=== PATIENT | female | born 1985 | race Caucasian/White ===

== ENCOUNTER 2020-11-25 16:56 | Inpatient (IN) ==
[2020-11-25] MEDS ORDERED: ONDANSETRON INJ 2 MG/ML 2 ML VIAL IV STA (17:13)
[2020-11-25] MEDS ORDERED: SODIUM CHLORIDE 0.9% 1000ML 1,000 ML IV SCH (17:15)
--- NOTE | 2020-11-25 17:15 | Emergency Department Note ---
Impression & Plan Colon cancer metastasized to multiple sites, Abdominal ascites, Acute hyponatremia, Hypokalemia, Weakness ED Provider Note NAME: MEGHNA REED AGE: 35 SEX: F : 1985 ARRIVES VIA: Ambulance INFORMANT: Patient, the patient's significant other ED PROVIDER(S): Earnest Woodruff DO CHIEF COMPLAINT: Abdominal pain HPI: The patient is a 35-year-old female who presented to the emergency department for evaluation of abdominal pain. The patient has a history of recently diagnosed colon cancer which metastasized to her liver. She has a history of this as of approximately 1 year ago. She received chemotherapy 2 weeks ago. She has a colostomy. She has a significant amount of her bowel removed because of this diagnosis. Her significant other brought her to the emergency department today because of symptoms that been worsening over the course the last week. She is had decreased p.o. intake. She has been noted to have abdominal distention. She has had no vomiting but does complain of nausea and chest pain. She also has been having extreme weakness. Her significant other states that her symptoms are very severe at this time and is concerned that she has very severe abdominal distention compared to baseline. The patient has been taken all of her pain medication and is also concerned this may be making her very constipated. She has no rectal bleeding. She has had no falls. She describes no headaches at this time but has had recent headaches over the last 2 weeks. ROS: See above HPI for pertinent positives & negatives. A total of 10 systems reviewed and were otherwise negative. PAST MEDICAL HISTORY: See Below PAST SURGICAL HISTORY: See Below FAMILY HISTORY: See Below SOCIAL HISTORY: See Below HOME MEDICATIONS: See Below ALLERGIES: See Below VITALS: See Below PHYSICAL EXAMINATION: GENERAL: The patient is awake and alert. She appears to be somewhat anxious appearing. EYES: The conjunctivae are clear. The pupils are round and reactive. EARS, NOSE, MOUTH AND THROAT: The nose is without any evidence of any deformity. Mucous membranes are dry. NECK: The neck is nontender and supple. RESPIRATORY: Normal respiratory effort is noted there is no evidence of wheezing rhonchi or rales CARDIOVASCULAR: Tachycardic rate with regular rhythm was noted. There was no definite murmur. GASTROINTESTINAL: The abdomen is moderately distended and diffusely tender. There is no guarding or rigidity. There is output noted in the ostomy bag. MUSCULOSKELETAL/EXTREMITIES: There is no evidence of gross deformity full range of motion is noted in the hips and shoulders. SKIN: Skin is warm and dry. There is pedal edema bilaterally. NEUROLOGIC: Patient is awake alert and oriented x3. MEDICAL DECISION MAKING: The patient is a 35-year-old female who presented to the emergency department for generalized weakness. The patient has a history of metastatic colon cancer. She was treated in [place] 1 year ago where she had a colostomy. She has been receiving chemotherapy from [place] as well. Her last dose was 2 weeks ago. She has been taking oral chemotherapy that the family thinks was called [facility] but they are unsure. The patient's condition has been worsening especially over the course the last few weeks. She has been noted to have significant weakness. The patient was treated with IV fluids in the emergency department. Her con dition slowly improved while she was in the emergency department. I discussed the patient's laboratory and radiographic studies with her and her family members. Initially they requested to be transferred to [facility]. I discussed this case with the medicine team at [facility]. They do not feel that the patient would benefit from a transfer at this time as any intervention they could offer we could likely offer here initially until a formal plan and staging has been done. I agree with that assessment. When I discussed this with the patient and her family they stated that they would prefer to be transferred directly to [place] and do not want to stay at our facility. I will call the medicine team back at [facility] and arrange transportation on RN. I did discuss the case once again with Dr. Vega. The patient at this time is likely going to choose to be left to go AGAINST MEDICAL ADVICE with going by private vehicle to [facility]. 2310: I was notified by the nursing staff that the patient now would prefer to stay at our facility. They do not want to sign out AGAINST MEDICAL ADVICE. I do agree with this plan. I will notify the on-call [facility] hospitalist about the patient and hopefully the patient can be managed in our facility and have her condition maximized prior to discharge if this is still the plan. Triage Nursing notes reviewed. Prior medical records reviewed Vital Signs: reviewed and remarkable for tachycardia Differential diagnosis: Cardiac ischemia, aortic dissection, pulmonary embolism, pneumothorax, pneumonia, pericarditis, myocarditis, esophageal rupture, GERD, cholecystitis, pancreatitis, musculoskeletal, as well as other pathologies. ER treatment provided: See below Diagnostics interpreted by me: ECG: EKG was obtained in the emergency department. My interpretation is sinus tachycardia [address] depressions were noted. There was no PVCs. No previous tracing was available. Cardiac Monitoring: An order was placed for continuous cardiac monitoring. The monitor shows a rate of 115 bpm with sinus tachycardia rhythm. Laboratory studies: As stated above and show below. Imaging studies: See below Consultation(s): 5: I discussed this case with Dr. Vega who is on-call for internal medicine at [facility]. 2229: I discussed this case again with Dr. Vega. She is not comfortable excepting the patient transfer given the current bed situation as well as the patient's current medical needs. Do not worry about it 2355: The [facility] hospitalist, Dr. Barger was notified about the patient. Past Med/Surg History Medical History Metastatic colon cancer in female Surgical History H/O: hysterectomy History of colon resection Social History Smoking Status: Never smoker Preferred Language: [place] Feels Safe at Home: Yes Allergies Allergies Allergy/AdvReac Type Severity Reaction Status Date / Time Sulfa (Sulfonamide Allergy Unknown Rash Unverified 11/25/20 18:51 Antibiotics) Home Meds Home Medications Medication Instructions Recorded Confirmed Iv Vitamins 0 g IV DAILY 11/25/20 11/25/20 pantoprazole 20 mg PO DAILY 11/25/20 11/25/20 Results & Data (ED) Vital Signs Vital Signs - 24 hr 11/25/20 17:08 11/25/20 17:13 11/25/20 18:30 Temperature 37 C Temperature Source Oral Pulse Rate 123 H 128 H Pulse Rate from SpO2 Sensor 124 H Respiratory Rate 22 20 Blood Pressure 116/86 116/86 Blood Pressure Mean 96 96 Pulse Oximetry 92 93 99 Oxygen Delivery Method Room Air Nasal Cannula Oxygen Flow Rate 5 Sepsis Recent Fever Within 48 Hours No Sepsis New/Unexplained Change in Mental Status N/A Sepsis Action Taken by Nursing No Action Required 11/25/20 18:31 11/25/20 19:00 11/25/20 19:01 Temperature Temperature Source Pulse Rate 114 H 105 H 111 H Pulse Rate from SpO2 Sensor 114 H 106 H 111 H Respiratory Rate 20 20 20 Blood Pressure 120/83 120/84 Blood Pressure Mean 95 96 Pulse Oximetry 99 100 100 Oxygen Delivery Method Oxygen Flow Rate 5 Sepsis Recent Fever Within 48 Hours Sepsis New/Unexplained Change in Mental Status Sepsis Action Taken by Nursing 11/25/20 19:30 11/25/20 20:00 11/25/20 20:02 Temperature Temperature Source Pulse Rate 105 H 108 H 106 H Pulse Rate from SpO2 Sensor 105 H 107 H 106 H Respiratory Rate 19 22 23 Blood Pressure 120/81 115/99 Blood Pressure Mean 94 104 Pulse Oximetry 100 100 100 Oxygen Delivery Method Oxygen Flow Rate Sepsis Recent Fever Within 48 Hours Sepsis New/Unexplained Change in Mental Status Sepsis Action Taken by [facility] Medications Current Medication List: was personally reviewed by me Laboratory Data Attestation: I reviewed the patient's lab results. Result diagrams: 11/25/20 18:10 11/25/20 19:02 Lab Results 11/25/20 11/25/20 11/25/20 Range/Units 18:10 18:10 18:10 WBC 17.30 H (4.8-10.8) K/uL RBC 5.02 (4.2-5.4) M/uL Hgb 16.7 H (12.0-16.0) g/dL Hct 47.5 H (37-47) % MCV 94.6 (80-100) fL MCH 33.3 (25-34) pg MCHC 35.2 (32-36) g/dL RDW Std Deviation 49.0 H (36.4-46.3) fL RDW Coeff of Lavinia 14.3 (11.5-14.5) % Plt Count 273 (130-400) K/uL MPV 9.8 (7.4-10.4) fL Immature Gran % (Auto) 0.3 % Neut % (Auto) 85.1 % Lymph % (Auto) 7.5 % [place] % (Auto) 7.0 % Eos % (Auto) 0.0 % Baso % (Auto) 0.1 % Neut # (Auto) 14.74 H (1.4-6.5) K/uL Lymph # (Auto) 1.29 (1.2-3.4) K/uL [place] # (Auto) 1.21 H (0.11-0.59) K/uL Eos # (Auto) 0.00 (0-0.5) K/uL Baso # (Auto) 0.01 (0-0.2) K/uL Immature Gran # (Auto) 0.05 H (0.00-0.02) K/uL PT 16.8 H (9.0-12.0) Seconds INR 1.7 H (0.9-1.1) APTT 33.3 H (21.0-31.0) Seconds PTT Ratio 1.3 Sodium Cancelled Potassium Cancelled Chloride Cancelled Carbon Dioxide Cancelled Anion Gap Cancelled BUN Cancelled Creatinine Cancelled Est Cr Clr Drug Dosing Cancelled Est GFR ( Amer) Cancelled Est GFR (Non-Af Amer) Cancelled BUN/Creatinine Ratio Cancelled Glucose Cancelled Osmolality (280-300) mOsm/kg Calcium Cancelled Magnesium Cancelled Total Bilirubin Cancelled Direct Bilirubin (0-0.2) mg/dl AST Cancelled ALT Cancelled Alkaline Phosphatase Cancelled Troponin I Cancelled Total Protein Cancelled Albumin Cancelled Globulin Cancelled Albumin/Globulin Ratio Cancelled TSH Cancelled Specimen Hemolysis Cancelled Urine Color Urine Appearance (Clear) Urine pH (4.5-7.5) Ur Specific Brule (1.000-1.030) Urine Protein (Negative) Urine Glucose (UA) (Negative) Urine Ketones (Negative) Urine Blood (Negative) Urine Nitrite (Negative) Urine Bilirubin (Negative) Urine Urobilinogen (Negative) Ur Leukocyte Esterase (Negative) Urine Osmolality (500-800) mOsm/kg Ur Random Sodium mmol/L 11/25/20 11/25/20 11/25/20 Range/Units 18:10 18:15 18:15 WBC (4.8-10.8) K/uL RBC (4.2-5.4) M/uL Hgb (12.0-16.0) g/dL Hct (37-47) % MCV (80-100) fL MCH (25-34) pg MCHC (32-36) g/dL RDW Std Deviation (36.4-46.3) fL RDW Coeff of Lavinia (11.5-14.5) % Plt Count (130-400) K/uL MPV (7.4-10.4) fL Immature Gran % (Auto) % Neut % (Auto) % Lymph % (Auto) % [place] % (Auto) % Eos % (Auto) % Baso % (Auto) % Neut # (Auto) (1.4-6.5) K/uL Lymph # (Auto) (1.2-3.4) K/uL [place] # (Auto) (0.11-0.59) K/uL Eos # (Auto) (0-0.5) K/uL Baso # (Auto) (0-0.2) K/uL Immature Gran # (Auto) (0.00-0.02) K/uL PT (9.0-12.0) Seconds INR (0.9-1.1) APTT (21.0-31.0) Seconds PTT Ratio Sodium Potassium Chloride Carbon Dioxide Anion Gap BUN Creatinine Est Cr Clr Drug Dosing Est GFR ( Amer) Est GFR (Non-Af Amer) BUN/Creatinine Ratio Glucose Osmolality 261 L (280-300) mOsm/kg Calcium Magnesium Total Bilirubin Direct Bilirubin (0-0.2) mg/dl AST ALT Alkaline Phosphatase Troponin I Total Protein Albumin Globulin Albumin/Globulin Ratio TSH Specimen Hemolysis Urine Color Yellow Urine Appearance Clear (Clear) Urine pH 5.0 (4.5-7.5) Ur Specific Brule 1.030 (1.000-1.030) Urine Protein Negative (Negative) Urine Glucose (UA) Negative (Negative) Urine Ketones 1+ H (Negative) Urine Blood Negative (Negative) Urine Nitrite Negative (Negative) Urine Bilirubin Negative (Negative) Urine Urobilinogen Negative (Negative) Ur Leukocyte Esterase Negative (Negative) Urine Osmolality 534 (500-800) mOsm/kg Ur Random Sodium mmol/L 11/25/20 11/25/20 Range/Units 18:15 19:02 WBC (4.8-10.8) K/uL RBC (4.2-5.4) M/uL Hgb (12.0-16.0) g/dL Hct (37-47) % MCV (80-100) fL MCH (25-34) pg MCHC (32-36) g/dL RDW Std Deviation (36.4-46.3) fL RDW Coeff of Lavinia (11.5-14.5) % Plt Count (130-400) K/uL MPV (7.4-10.4) fL Immature Gran % (Auto) % Neut % (Auto) % Lymph % (Auto) % [place] % (Auto) % Eos % (Auto) % Baso % (Auto) % Neut # (Auto) (1.4-6.5) K/uL Lymph # (Auto) (1.2-3.4) K/uL [place] # (Auto) (0.11-0.59) K/uL Eos # (Auto) (0-0.5) K/uL Baso # (Auto) (0-0.2) K/uL Immature Gran # (Auto) (0.00-0.02) K/uL PT (9.0-12.0) Seconds INR (0.9-1.1) APTT (21.0-31.0) Seconds PTT Ratio Sodium 128 L Potassium 1.6 L* Chloride 77 L Carbon Dioxide 37 H Anion Gap 14.0 H BUN 6 L Creatinine 0.40 L Est Cr Clr Drug Dosing 167.9 Est GFR ( Amer) > 150.0 Est GFR (Non-Af Amer) 134.0 BUN/Creatinine Ratio 14.8 Glucose 99 Osmolality (280-300) mOsm/kg Calcium 7.3 L Magnesium 2.4 Total Bilirubin 2.2 H Direct Bilirubin 1.9 H (0-0.2) mg/dl AST 129 H ALT 60 Alkaline Phosphatase 785 H Troponin I < 0.015 Total Protein 5.1 L Albumin 2.0 L Globulin Albumin/Globulin Ratio TSH 1.160 Specimen Hemolysis Urine Color Urine Appearance (Clear) Urine pH (4.5-7.5) Ur Specific Brule (1.000-1.030) Urine Protein (Negative) Urine Glucose (UA) (Negative) Urine Ketones (Negative) Urine Blood (Negative) Urine Nitrite (Negative) Urine Bilirubin (Negative) Urine Urobilinogen (Negative) Ur Leukocyte Esterase (Negative) Urine Osmolality (500-800) mOsm/kg Ur Random Sodium 45 mmol/L Administered Medications Fentanyl Citrate (Fentanyl Citrate 100 Mcg/2 Ml Vial) 50 mcg IV Q15M PRN PRN Reason: Pain Stop: 12/09/20 17:12 Last Admin: 11/25/20 22:03 Dose: 50 mcg Documented by: [id number] Admin: 11/25/20 18:29 Dose: 50 mcg Documented by: [id number] Discontinued Medications Heparin Sodium (Porcine) (Heparin 100 Unit/Ml 5ml Flush) Confirm Administered Dose 5 ml .ROUTE .STK-MED ONE Stop: 11/25/20 22:47 Last Admin: 11/25/20 22:49 Dose: 5 ml Documented by: [id number] Sodium Chloride (Nss 1000ml) 1,000 mls @ 999 mls/hr IV .Q1H1M SELINA Stop: 11/25/20 18:15 Last Infusion: 11/25/20 19:38 Dose: 0 mls/hr Documented by: [id number] Admin: 11/25/20 18:29 Dose: 999 mls/hr Documented by: [id number] Potassium Chloride (K Chai / Wtr) 20 meq in 100 mls @ 50 mls/hr IV ONE ONE Stop: 11/25/20 21:36 Last Infusion: 11/25/20 22:49 Dose: 0 mls/hr Documented by: [id number] Admin: 11/25/20 20:07 Dose: 50 mls/hr Documented by: [id number] Sodium Chloride (Nss 1000ml) 1,000 mls @ 999 mls/hr IV .Q1H1M ONE Stop: 11/25/20 20:37 Last Infusion: 11/25/20 21:21 Dose: 0 mls/hr Documented by: [id number] Admin: 11/25/20 20:07 Dose: 999 mls/hr Documented by: [id number] Piperacillin Sod/Tazobactam Sod (Zosyn) 4.5 gm in 120 mls @ 240 mls/hr IV NOW ONE Stop: 11/25/20 22:43 Last Admin: 11/25/20 22:43 Dose: 240 mls/hr Documented by: [id number] Ioversol (Optiray 320 125ml) 120 ml IV ONCE ONE Stop: 11/25/20 19:48 Last Admin: 11/25/20 19:47 Dose: 120 ml Documented by: [id number] Ondansetron HCl (Ondansetron Inj 2 Mg/Ml 2 Ml Vial) 4 mg IV NOW STA Stop: 11/25/20 17:14 Last Admin: 11/25/20 18:29 Dose: 4 mg Documented by: [id number] Imaging Data Radiologist's Impression: Chest X-Ray 11/25/20 17:13 XR chest 1V portable HISTORY: 35 years-old Female weakness acute weakness COMPARISON: None TECHNIQUE: Portable upright AP view of the chest FINDINGS: Cardiac silhouette is upper limits of normal in size. Right IJ Suwnow-e-Yamm catheter distal tip projects over the right atrium. Mild bilateral hilar prominence. Extensive bilateral reticulonodular opacities. Right greater than left bibasilar consolidation. Small pleural effusions. No pneumothorax. Bones appear grossly intact. IMPRESSION: 1. Bilateral reticular nodular opacities with right greater than left bibasilar consolidation. Findings should be correlated with the ordered CTA chest study of same day. 2. Suggested small pleural effusions. ACT 112: Negative or not required by law. The above report was generated using voice recognition software. It may contain grammatical, syntax or spelling errors. Electronically signed by: Dung Marcos M.D. 11/25/2020 6:36 PM Abdomen/Pelvis CT 11/25/20 17:18 CT angio chest PE protocol, CT abd pelvis IV con only CT DOSE: 862.18 mGy.cm HISTORY: 35 years-old Female with PE. Acute shortness of breath with chest and abdominal pain. History of metastatic colon cancer with prior colonic resection TECHNIQUE: Multiple CTA images of the chest were obtained after the intravenous administration of 120 ml Optiray. Coronal and sagittal MIPS were obtained from the axial data set and were submitted for review. CT abdomen and pelvis with IV contrast only was also obtained. All measurements were obtained according to NASCET criteria. A dose lowering technique was utilized adhering to the principles of ALARA. COMPARISON: None. FINDINGS: CTA: Narrowing of the right subclavian vein with opacified collateral vessels of the right chest wall. Right subclavian [id number]-[id number]-Cudp catheter distal tip terminates in the SVC. The heart is normal in size. Small pericardial effusion. No thoracic aortic aneurysm or dissection. Patency of the imaged great vessels. The pulmonary arterial tree is opacified to level the subsegmental branches and demonstrates no filling defects to suggest thromboembolic disease. CT CHEST: Heterogeneous thyroid. Pathologically enlarged mediastinal and hilar lymph nodes include AP window lymph nodes measuring up to 11 mm. Small bilateral pleural eff usions. Pleural and subpleural nodules are noted bilaterally including a 9 mm subpleural nodule of the left mammary chain distribution on image 88. Innumerable bilateral miliary and scattered solid pulmonary nodules are noted with nodules lung bases measuring up to 1.2 cm on the right on image 58. D ependent bibasilar consolidation with heterogeneous enhancement. Bilateral bronchial wall thickening. The central airways are patent. Unremarkable soft tissues. No acute fracture or definite suspicious lytic or blastic osseous lesion identified. CT ABDOMEN/PELVIS: There is no pneumatosis or pneumoperitoneum. The spleen measures the upper limits of normal in size at 12.5 cm. There are several ill-defined low-density lesions of the spleen measuring up to 1.6 cm on the posterior inferior margin. Unremarkable adrenal glands. There is increased enhancement of the gallbladder. No cholelithiasis. Extensive hepatic metastatic disease with innumerable lesions measuring over 5 cm within the right left hepatic lobes. There is associated pseudocirrhosis of the liver. The portal vein appears patent. Prominent lymph nodes are present within the sg hepatis. Pathologic retroperitoneal lymph nodes include a 2.3 x 1.8 cm pericaval lymph node on image 213 series 6. Omental carcinomatosis includes a 1.2 cm nodule of the abdominal left upper quadrant on image 244. Large volume of abdominopelvic ascites. No hydronephrosis. Unremarkable urinary bladder. Uterus is not diagnostically visualized and may be surgically absent. No bowel obstruction. There is moderate circumferential wall thickening involving several loops of small bowel within the abdomen and pelvis with numerous serosal implants. Tethering of small bowel loops in the central mesentery on image 340 series 6. Descending left lower quadrant colostomy. Mild generalized body wall edema. There is a heterogeneous 5.7 x 4.8 cm soft tissue lesion present involving the left abductor musculature and left obturator internus on image 454. Moderate discogenic degeneration at L5-S1. No definite evidence of skeletal metastatic disease. IMPRESSION: 1. No pulmonary emboli. 2. Extensive metastatic disease within the chest, abdomen and pelvis as above includes lymphatic, pulmonary, pleural and hepatic metastatic disease with omental carcinomatosis and possible splenic metastasis. 3. Small pleural effusions with bibasilar consolidation suggestive of atelectasis versus pneumonia. 4. Large volume of presumably metastatic abdominopelvic ascites. 5. Multifocal wall thickening of the small bowel suggestive of a nonspecific enteritis. Numerous serosal metastatic implants are also noted. 6. Metastatic soft tissue mass of the left abductor musculature. 7. Additional findings as above. ACT 112: Negative or not required by law. The above report was generated using voice recognition software. It may contain grammatical, syntax or spelling errors. Electronically signed by: Dung Marcos M.D. 11/25/2020 8:53 PM Chest CTA 11/25/20 17:18 CT angio chest PE protocol, CT abd pelvis IV con only CT DOSE: 862.18 mGy.cm HISTORY: 35 years-old Female with PE. Acute shortness of breath with chest and abdominal pain. History of metastatic colon cancer with prior colonic resection TECHNIQUE: Multiple CTA images of the chest were obtained after the intravenous administration of 120 ml Optiray. Coronal and sagittal MIPS were obtained from the axial data set and were submitted for review. CT abdomen and pelvis with IV contrast only was also obtained. All measurements were obtained according to NASCET criteria. A dose lowering technique was utilized adhering to the principles of ALARA. COMPARISON: None. FINDINGS: CTA: Narrowing of the right subclavian vein with opacified collateral vessels of the right chest wall. Right subclavian Btjkxd-i-Eysa catheter distal tip terminates in the SVC. The heart is normal in size. Small pericardial effusion. No thoracic aortic aneurysm or dissection. Patency of the imaged great vessels. The pulmonary arterial tree is opacified to level the subsegmental branches and demonstrates no filling defects to suggest thromboembolic disease. CT CHEST: Heterogeneous thyroid. Pathologically enlarged mediastinal and hilar lymph nodes include AP window lymph nodes measuring up to 11 mm. Small bilateral pleural ef fusions. Pleural and subpleural nodules are noted bilaterally including a 9 mm subpleural nodule of the left mammary chain distribution on image 88. Innumerable bilateral miliary and scattered solid pulmonary nodules are noted with nodules lung bases measuring up to 1.2 cm on the right on image 58. Dependent bibasilar consolidation with heterogeneous enhancement. Bilateral bronchial wall thickening. The central airways are patent. Unremarkable soft tissues. No acute fracture or definite suspicious lytic or blastic osseous lesion identified. CT ABDOMEN/PELVIS: There is no pneumatosis or pneumoperitoneum. The spleen measures the upper limits of normal in size at 12.5 cm. There are several ill-defined low-density lesions of the spleen measuring up to 1.6 cm on the posterior inferior margin. Unremarkable adrenal glands. There is increased enhancement of the gallbladder. No cholelithiasis. Extensive hepatic metastatic disease with innumerable lesions measuring over 5 cm within the right left hepatic lobes. There is associated pseudocirrhosis of the liver. The portal vein appears patent. Prominent lymph nodes are present within the sg hepatis. Pathologic retroperitoneal lymph nodes include a 2.3 x 1.8 cm pericaval lymph node on image 213 series 6. Omental carcinomatosis includes a 1.2 cm nodule of the abdominal left upper quadrant on image 244. Large volume of abdominopelvic ascites. No hydronephrosis. Unremarkable urinary bladder. Uterus is not diagnostically visualized and may be surgically absent. No bowel obstruction. There is moderate circumferential wall thickening involving several loops of small bowel within the abdomen and pelvis with numerous serosal implants. Tethering of small bowel loops in the central mesentery on image 340 series 6. Descending left lower quadrant colostomy. Mild generalized body wall edema. There is a heterogeneous 5.7 x 4.8 cm soft tissue lesion present involving the left abductor musculature and left obturator internus on image 454. Moderate discogenic degeneration at L5-S1. No definite evidence of skeletal metastatic disease. IMPRESSION: 1. No pulmonary emboli. 2. Extensive metastatic disease within the chest, abdomen and pelvis as above includes lymphatic, pulmonary, pleural and hepatic metastatic disease with omental carcinomatosis and possible splenic metastasis. 3. Small pleural effusions with bibasilar consolidation suggestive of atelectasis versus pneumonia. 4. Large volume of presumably metastatic abdominopelvic ascites. 5. Multifocal wall thickening of the small bowel suggestive of a nonspecific enteritis. Numerous serosal metastatic implants are also noted. 6. Metastatic soft tissue mass of the left abductor musculature. 7. Additional findings as above. ACT 112: Negative or not required by law. The above report was generated using voice recognition software. It may contain grammatical, syntax or spelling errors. Electronically signed by: Dung Marcos M.D. 11/25/2020 8:[address] 11/25/20 17:18 CT head/brain wo con CLINICAL HISTORY: 35 years-old Female with weankess. Acute weakness TECHNIQUE: Multiple axial CT images of the head were obtained without contrast. A dose lowering technique was utilized adhering to the principles of ALARA. CT DOSE: 537.48 mGy.cm COMPARISON: Brain MRI 02/28/2014 FINDINGS: Mildly motion degraded exam. No acute intracranial hemorrhage, midline shift, intracranial mass, hydrocephalus, territorial ischemia or abnormal extra-axial collection. The calvarium is intact. Large left mastoid effusion. The right mastoid air cells are clear. The paranasal sinuses are clear. Unremarkable soft tissues and orbits. IMPRESSION: 1. No acute intracranial abnormality. 2. Left mastoid effusion. ACT 112: Negative or not required by law. The above report was generated using voice recognition software. It may contain grammatical, syntax or spelling errors. Electronically signed by: Dung Marcos M.D. 11/25/2020 7:58 PM Discharge Plan Visit Data Chief Complaint: Weakness ED Provider: Earnest Woodruff Discharge Problem: Colon cancer metastasized to multiple sites, Abdominal ascites, Acute hyponatremia, Hypokalemia, Weakness Patient Disposition: Being Evaluated by Hospitalist Condition: Fair Forms Stand Alone Forms: [facility] [employer] Prescriptions Prescriptions: No Action pantoprazole 20 mg Tablet,Delayed Release (Dr/Ec) 20 mg PO DAILY RF: 0 Iv Vitamins 0 g IV DAILY RF: 0 Referrals Referrals: Amarilys Yi CRNP [Primary Care Provider] - Discharge Problem: Abdominal ascites Qualifiers: Ascites type: malignant Qualified Code(s): R18.0 - Malignant ascites
[2020-11-25 18:27] LABS: Basophils # (auto) 0.01 K/uL (0-0.2); Basophils % (auto) 0.1 %; Hematocrit (blood only) 47.5 % (37-47); Hemoglobin 16.7 g/dL (12.0-16.0); Immature Granulocytes # (auto) 0.05 K/uL (0.00-0.02); Immature Granulocytes % (auto) 0.3 %; Lymphocytes # (auto) 1.29 K/uL (1.2-3.4); Lymphocytes % (auto) 7.5 %; Mean Corpuscular Hemoglobin 33.3 pg (25-34); Mean Corpuscular Hgb Conc 35.2 g/dL (32-36); Mean Corpuscular Volume 94.6 fL (80-100); Mean Platelet Volume 9.8 fL (7.4-10.4); Monocytes # (auto) 1.21 K/uL (0.11-0.59); Neutrophils # (auto) 14.74 K/uL (1.4-6.5); Neutrophils % (auto) 85.1 %; Platelet Count 273 K/uL (130-400); RDW Coefficient of Variation 14.3 % (11.5-14.5); Red Blood Count 5.02 M/uL (4.2-5.4)
[2020-11-25] MEDS: fentaNYL citrate 100 MCG/2 ML VIAL IV PRN ×2 (18:29→22:03)
[2020-11-25 18:37] LABS: INR 1.7 (0.9-1.1); Partial Thromboplastin Ratio 1.3; Partial Thromboplastin Time 33.3 Seconds (21.0-31.0); Prothrombin Time 16.8 Seconds (9.0-12.0)
--- NOTE | 2020-11-25 18:38 | XRay Report ---
XR chest 1V portable HISTORY: 35 years-old Female weakness acute weakness COMPARISON: None TECHNIQUE: Portable upright AP view of the chest FINDINGS: Cardiac silhouette is upper limits of normal in size. Right IJ Lqztsy-t-Vmxs catheter distal tip proj ects over the right atrium. Mild bilateral hilar prominence. Extensive bilateral reticulonodular opac ities. Right greater than left bibasilar consolidation. Small pleural effusions. No pneumothorax. Bon es appear grossly intact. IMPRESSION: 1. Bilateral reticular nodular opacities with right greater than left bibasilar consolidation. Findin gs should be correlated with the ordered CTA chest study of same day. 2. Suggested small pleural effusions. ACT 112: Negative or not required by law. The above report was generated using voice recognition software. It may contain grammatical, syntax o r spelling errors. Electronically signed by: Dung Marcos M.D. 11/25/2020 6:36 PM
[2020-11-25 18:40] LABS: Appearance Urine Clear (Clear); Bilirubin Urine Negative (Negative); Blood Urine Negative (Negative); Color Urine Yellow; Glucose Urine UA Negative (Negative); Ketones Urine 1+ (Negative); Leukocyte Esterase Urine Negative (Negative); Nitrite Urine Negative (Negative); Protein Urine Negative (Negative); Urobilinogen Urine Negative (Negative)
[2020-11-25 19:36] LABS: Alanine Aminotransferase 60 U/L (12-78); Aspartate Aminotransferase 129 U/L (15-37); BUN Creatinine Ratio 14.8 (10-20); Bilirubin Direct 1.9 mg/dl (0-0.2); Blood Urea Nitrogen 6 mg/dl (7-18); Calcium 7.3 mg/dl (8.5-10.1); Carbon Dioxide 37 mmol/L (21-32); Chloride 77 mmol/L (98-107); Creatinine Clr Calc Pharmacy 167.9 ml/min; Est GFR (African American) > 150.0 ml/min; Glucose 99 mg/dl (70-99); Magnesium 2.4 mg/dl (1.8-2.4); Potassium 1.6 mmol/L (3.5-5.1); Sodium 128 mmol/L (136-145)
[2020-11-25] MEDS ORDERED: SODIUM CHLORIDE 0.9% 1000ML 1,000 ML IV ONE (19:37)
[2020-11-25] MEDS ORDERED: POTASSIUM CHLORIDE / WTR 20 MEQ/100 ML PLCT IV ONE (19:37)
[2020-11-25 19:43] LABS: Alkaline Phosphatase 785 U/L (45-117); Bilirubin,Total 2.2 mg/dl (0.2-1); Total Protein 5.1 gm/dl (6.4-8.2); Troponin I < 0.015 ng/ml (0-0.045)
[2020-11-25] MEDS ORDERED: OPTIRAY 320 125ml IV ONE (19:47)
--- NOTE | 2020-11-25 19:59 | CT Scan Report ---
CT head/brain wo con CLINICAL HISTORY: 35 years-old Female with weankess. Acute weakness TECHNIQUE: Multiple axial CT images of the head were obtained without contrast. A dose lowering tech nique was utilized adhering to the principles of ALARA. CT DOSE: 537.48 mGy.cm COMPARISON: Brain MRI 02/28/2014 FINDINGS: Mildly motion degraded exam. No acute intracranial hemorrhage, midline shift, intracranial mass, hydr ocephalus, territorial ischemia or abnormal extra-axial collection. The calvarium is intact. Large left mastoid effusion. The right mastoid air cells are clear. The par anasal sinuses are clear. Unremarkable soft tissues and orbits. IMPRESSION: 1. No acute intracranial abnormality. 2. Left mastoid effusion. ACT 112: Negative or not required by law. The above report was generated using voice recognition software. It may contain grammatical, syntax o r spelling errors. Electronically signed by: Dung Marcos M.D. 11/25/2020 7:58 PM
--- NOTE | 2020-11-25 20:54 | CT Scan Report ---
CT angio chest PE protocol, CT abd pelvis IV con only CT DOSE: 862.18 mGy.cm HISTORY: 35 years-old Female with PE. Acute shortness of breath with chest and abdominal pain. Hist ory of metastatic colon cancer with prior colonic resection TECHNIQUE: Multiple CTA images of the chest were obtained after the intravenous administration of 120 ml Optiray. Coronal and sagittal MIPS were obtained from the axial data set and were submitted for review. CT abdomen and pelvis with IV contrast only was also obtained. All measurements were obtained according to NASCET criteria. A dose lowering technique was utilized adhering to the principles of A FARIDA. COMPARISON: None. FINDINGS: CTA: Narrowing of the right subclavian vein with opacified collateral vessels of the right chest wall. Rig ht subclavian Iobshb-p-Vegy catheter distal tip terminates in the SVC. The heart is normal in size. S mall pericardial effusion. No thoracic aortic aneurysm or dissection. Patency of the imaged great ves sels. The pulmonary arterial tree is opacified to level the subsegmental branches and demonstrates no filling defects to suggest thromboembolic disease. CT CHEST: Heterogeneous thyroid. Pathologically enlarged mediastinal and hilar lymph nodes include AP window ly mph nodes measuring up to 11 mm. Small bilateral pleural effusions. Pleural and subpleural nodules ar e noted bilaterally including a 9 mm subpleural nodule of the left mammary chain distribution on imag e 88. Innumerable bilateral miliary and scattered solid pulmonary nodules are noted with nodules lung bases measuring up to 1.2 cm on the right on image 58. Dependent bibasilar consolidation with hetero geneous enhancement. Bilateral bronchial wall thickening. The central airways are patent. Unremarkable soft tissues. No acute fracture or definite suspicious lytic or blastic osseous lesion i dentified. CT ABDOMEN/PELVIS: There is no pneumatosis or pneumoperitoneum. The spleen measures the upper limits of normal in size a t 12.5 cm. There are several ill-defined low-density lesions of the spleen measuring up to 1.6 cm on the posterior inferior margin. Unremarkable adrenal glands. There is increased enhancement of the gal lbladder. No cholelithiasis. Extensive hepatic metastatic disease with innumerable lesions measuring over 5 cm within the right left hepatic lobes. There is associated pseudocirrhosis of the liver. The portal vein appears patent. Prominent lymph nodes are present within the sg hepatis. Pathologic re troperitoneal lymph nodes include a 2.3 x 1.8 cm pericaval lymph node on image 213 series 6. Omental carcinomatosis includes a 1.2 cm nodule of the abdominal left upper quadrant on image 244. Large volu me of abdominopelvic ascites. No hydronephrosis. Unremarkable urinary bladder. Uterus is not diagnostically visualized and may be s urgically absent. No bowel obstruction. There is moderate circumferential wall thickening involving s everal loops of small bowel within the abdomen and pelvis with numerous serosal implants. Tethering o f small bowel loops in the central mesentery on image 340 series 6. Descending left lower quadrant co lostomy. Mild generalized body wall edema. There is a heterogeneous 5.7 x 4.8 cm soft tissue lesion p resent involving the left abductor musculature and left obturator internus on image 454. Moderate dis cogenic degeneration at L5-S1. No definite evidence of skeletal metastatic disease. IMPRESSION: 1. No pulmonary emboli. 2. Extensive metastatic disease within the chest, abdomen and pelvis as above includes lymphatic, pul monary, pleural and hepatic metastatic disease with omental carcinomatosis and possible splenic metas tasis. 3. Small pleural effusions with bibasilar consolidation suggestive of atelectasis versus pneumonia. 4. Large volume of presumably metastatic abdominopelvic ascites. 5. Multifocal wall thickening of the small bowel suggestive of a nonspecific enteritis. Numerous sero olive metastatic implants are also noted. 6. Metastatic soft tissue mass of the left abductor musculature. 7. Additional findings as above. ACT 112: Negative or not required by law. The above report was generated using voice recognition software. It may contain grammatical, syntax o r spelling errors. Electronically signed by: Dung Marcos M.D. 11/25/2020 8:53 PM
[2020-11-25] MEDS ORDERED: PIPERACILL/TAZOBAC CONSULT ACTIVE PRN (22:14)
[2020-11-25] MEDS ORDERED: PIPERACILLIN/TAZOBACTAM 4.5 GM/120 ML BAG IV ONE (22:14)
[2020-11-25] MEDS ORDERED: HEPARIN 100 UNIT/ML 5ML FLUSH ONE (22:46)
--- NOTE | 2020-11-26 00:50 | History & Physical Report ---
Date of Service November 26, 2020 Assessment & Plan (1) Weakness: 35-year-old Catholic female with metastatic colon cancer presenting with several weeks of progressive weakness, abdominal pain and bloating as well as decreased oral intake. Reason for weakness most likely multifactorial to include diffusely metastatic disease, poor oral intake with dehydration as well as electrolyte abnormalities, hyponatremia and severe hypokalemia. Admit to medical with telemetry IV fluids as below Potassium repletion as below Encourage oral intake as tolerated Present on Admission?: Yes (2) Colon cancer metastasized to multiple sites: Patient diagnosed at [facility] October 2019. She has undergone surgical intervention, bowel resection with colostomy placement as well as chemotherapy at outside institutions. Unfortunately her imaging obtained today shows diffusely metastatic disease involving the lungs, liver, abdomen, pelvis, lymphatic, pleura, omentum, musculature and possible splenic metastasis. She has large volume abdominopelvic ascites most likely malignant in origin. Uncertain how extensive her disease was upon initial presentation. -Obtain records from [facility] as well as from her treatments in [place] and information on current chemotherapy regimen - communication order placed in chart. -Oncology consultation appreciated -Palliative care consultation appreciated -Ceftriaxone 1gm IV daily for possible SBP -Repeat chemistry and LFTs in AM -Pain control with Morphine 2mg IV q 2 hours PRN -Colace and Miralax PRN Present on Admission?: Yes (3) Hypokalemia: K=1.6 possibly secondary to poor intake + GI losses. She has been given 20mEq thus far, additional 10mEq x 2 ordered in ER - not yet administered. Mg is within normal limits. Sister states that patient is most likely unable to tolerate oral intake at this time and she may vomit after medication intake. -BMP q 8 hours -K riders - 10mEq x 6 -KCl 20mEq in 1L LR to be given at 80mL/hr x 2 liters (This totals 140mEq of potassium - additional repletion will most likely be required) -Encourage PO as tolerated - if patient is able to tolerated PO will replete with oral K as well. Present on Admission?: Yes (4) Acute hyponatremia: Aq=452. Patient given NSS x 2 liters in ER. Hypoosmolar with Serum osmolality of 261. Hypovolemic with urine Na of 45. -BMP q 8 hours -Continue NSS at 80mL/hr with KCl 20mEq/bag x 2 liters F/E/N - NSS +KCl as above, K repletion as above, Check PO4, clear liquids diet - advance as tolerated Ppx - Lovenox 40 Code - DNR/DNI per discussion with patient - and sister at bedside Dispo - Admit to medical with telemetry Present on Admission?: Yes History of Present Illness Chief Complaint: weakness Primary Care Provider: SONIA Barton Yessenia Pinto is a 35-year-old Catholic female with history of diffusely metastatic colon cancer diagnosed October 25, 2019 presenting with 3 to 4 weeks of progressive weakness, abdominal pain and bloating. Family is at bedside - and sister. Patient initially presented to [facility] in October 2019 with chief complaint of rectal bleeding. There she was diagnosed with colon cancer. She had abdominal surgery, bowel resection with colostomy placement performed in [place] in October-November 2019 and returned to [place] in July-August of 2020 for chemotherapy treatment. She is currently receiving chemotherapy medications from [place] - regimen is typically 2 weeks of medication followed by an off week. Uncertain of name of agent being used. She has had 3-4 weeks of progressive abdominal bloating and pain. Poor appetite with very little oral intake over the last 3 weeks. Occasional vomiting after oral intake - non-bloody/non-bilious emesis. Output from the ostomy has been normal to slightly reduced. She also has had some chest discomfort and SOB as well as severe weakness, inability to get up. Tachycardic in the ER with HR 103 - 126, otherwise stable. ER Course: Zosyn 4.5gm, Fentanyl 50mcg x 2 doses, NSS x 2L bolus, Zofran x 4mg, KCl x 20 mEq Allergies Allergy/AdvReac Type Severity Reaction Status Date / Time Sulfa (Sulfonamide Allergy Unknown Rash Unverified 11/25/20 18:51 Antibiotics) Home Medications Medication Instructions Recorded Confirmed Type Iv Vitamins 0 g IV DAILY 11/25/20 11/25/20 History pantoprazole 20 mg PO DAILY 11/25/20 11/25/20 History Past Med/Surg History Medical History (Updated 11/25/20 @ 22:12 by Earnest Woodruff DO) Metastatic colon cancer in female Surgical History (Updated 11/26/20 @ 00:58 by Shaylee Barger DO) H/O: hysterectomy History of colon resection History of colostomy Family History (Updated 11/26/20 @ 00:58 by Shaylee Barger DO) Grandfather (Paternal) Cancer Grandmother (Paternal) Cancer Aunt Cancer Uncle Cancer Social History (Updated 11/26/20 @ 00:59 by Shaylee Barger DO) Smoking Status: Never smoker Hx Alcohol Use: No Hx Substance Use: No Preferred Language: Luxembourgish Feels Safe at Home: Yes Review of Systems Review of Systems: All systems reviewed & are unremarkable except as noted in HPI & below Physical Exam Physical Exam: General: ill appearing female patient resting comfortably, NAD, AA&O x 4, cachectic Skin: warm, dry, intact, no rashes or lesions HEENT: NC/AT, PERRL, EOMI, anicteric sclera, conjunctiva without injection, external ear normal to inspection and nontender, nares patent, slightly dry mucus membranes, dentition intact, no oropharyngeal lesions, neck supple, trachea midline, no LAD, no thyromegaly, no JVD Heart: +S1/S2, regular, tachycardic, no m/r/g Lungs: equal air entry bilaterally, no rales/rhonchi/wheezes Abd: +BS, distended, tender to palpation with fluid wave and bulging flanks consistent with ascites, colostomy in place LLQ with pink stoma, +output, no bleeding/drainage/leakage Ext: warm, 2+ pulses in UE/LE bilaterally, no clubbing/cyanosis, 2+ pitting edema of bilateral LE Neuro: nonfocal, patient AA&O x 4, speech intact, no facial droop, moving all extremities on command with equal strength 5/5 Results & Data Results & Data ([facility]) Vital Signs (Past 12 Hours) Vital Signs Temp Pulse Resp BP Pulse Ox 11/26/20 00:04 113 H 23 118/94 98 11/26/20 00:03 113 H 14 11/25/20 23:00 111 H 26 H 11/25/20 22:30 115 H 21 100 11/25/20 22:00 126 H 21 113/82 100 11/25/20 21:30 114 H 20 100/77 100 11/25/20 21:00 108 H 22 118/88 100 11/25/20 20:30 103 H 21 120/87 100 11/25/20 20:02 106 H 23 100 11/25/20 20:00 108 H 22 115/99 100 11/25/20 19:30 105 H 19 120/81 100 11/25/20 19:01 111 H 20 100 11/25/20 19:00 105 H 20 120/84 100 11/25/20 18:31 114 H 20 120/83 99 11/25/20 18:30 99 11/25/20 17:13 37 C 128 H 20 116/86 93 11/25/20 17:08 123 H 22 116/86 92 Laboratory Results Laboratory Results WBC 17.30 K/uL (4.8-10.8) H 11/25/20 18:10 RBC 5.02 M/uL (4.2-5.4) 11/25/20 18:10 Hgb 16.7 g/dL (12.0-16.0) H 11/25/20 18:10 Hct 47.5 % (37-47) H 11/25/20 18:10 MCV 94.6 fL (80-100) 11/25/20 18:10 MCH 33.3 pg (25-34) 11/25/20 18:10 MCHC 35.2 g/dL (32-36) 11/25/20 18:10 RDW Std Deviation 49.0 fL (36.4-46.3) H 11/25/20 18:10 RDW Coeff of Lavinia 14.3 % (11.5-14.5) 11/25/20 18:10 Plt Count 273 K/uL (130-400) 11/25/20 18:10 MPV 9.8 fL (7.4-10.4) 11/25/20 18:10 Immature Gran % (Auto) 0.3 % 11/25/20 18:10 Neut % (Auto) 85.1 % 11/25/20 18:10 Lymph % (Auto) 7.5 % 11/25/20 18:10 [place] % (Auto) 7.0 % 11/25/20 18:10 Eos % (Auto) 0.0 % 11/25/20 18:10 Baso % (Auto) 0.1 % 11/25/20 18:10 Neut # (Auto) 14.74 K/uL (1.4-6.5) H 11/25/20 18:10 Lymph # (Auto) 1.29 K/uL (1.2-3.4) 11/25/20 18:10 [place] # (Auto) 1.21 K/uL (0.11-0.59) H 11/25/20 18:10 Eos # (Auto) 0.00 K/uL (0-0.5) 11/25/20 18:10 Baso # (Auto) 0.01 K/uL (0-0.2) 11/25/20 18:10 Immature Gran # (Auto) 0.05 K/uL (0.00-0.02) H 11/25/20 18:10 PT 16.8 Seconds (9.0-12.0) H 11/25/20 18:10 INR 1.7 (0.9-1.1) H 11/25/20 18:10 APTT 33.3 Seconds (21.0-31.0) H 11/25/20 18:10 PTT Ratio 1.3 11/25/20 18:10 Sodium 128 mmol/L (136-145) L 11/25/20 19:02 Potassium 1.6 mmol/L (3.5-5.1) L* 11/25/20 19:02 Chloride 77 mmol/L (98-107) L 11/25/20 19:02 Carbon Dioxide 37 mmol/L (21-32) H 11/25/20 19:02 Anion Gap 14.0 (3-11) H 11/25/20 19:02 BUN 6 mg/dl (7-18) L 11/25/20 19:02 Creatinine 0.40 mg/dl (0.6-1.2) L 11/25/20 19:02 Est Cr Clr Drug Dosing 167.9 ml/min 11/25/20 19:02 Est GFR ( Amer) > 150.0 ml/min 11/25/20 19:02 Est GFR (Non-Af Amer) 134.0 ml/min 11/25/20 19:02 BUN/Creatinine Ratio 14.8 (10-20) 11/25/20 19:02 Glucose 99 mg/dl (70-99) 11/25/20 19:02 Osmolality 261 mOsm/kg (280-300) L 11/25/20 18:10 Calcium 7.3 mg/dl (8.5-10.1) L 11/25/20 19:02 Magnesium 2.4 mg/dl (1.8-2.4) 11/25/20 19:02 Total Bilirubin 2.2 mg/dl (0.2-1) H 11/25/20 19:02 Direct Bilirubin 1.9 mg/dl (0-0.2) H 11/25/20 19:02 AST 129 U/L (15-37) H 11/25/20 19:02 ALT 60 U/L (12-78) 11/25/20 19:02 Alkaline Phosphatase 785 U/L (45-117) H 11/25/20 19:02 Troponin I < 0.015 ng/ml (0-0.045) 11/25/20 19:02 Total Protein 5.1 gm/dl (6.4-8.2) L 11/25/20 19:02 Albumin 2.0 gm/dl (3.4-5.0) L 11/25/20 19:02 Globulin Cancelled 11/25/20 18:10 Albumin/Globulin Ratio Cancelled 11/25/20 18:10 TSH 1.160 uIu/ml (0.300-4.500) 11/25/20 19:02 Specimen Hemolysis Cancelled 11/25/20 18:10 Urine Color Yellow 11/25/20 18:15 Urine Appearance Clear (Clear) 11/25/20 18:15 Urine pH 5.0 (4.5-7.5) 11/25/20 18:15 Ur Specific [place] 1.030 (1.000-1.030) 11/25/20 18:15 Urine Protein Negative (Negative) 11/25/20 18:15 Urine Glucose (UA) Negative (Negative) 11/25/20 18:15 Urine Ketones 1+ (Negative) H 11/25/20 18:15 Urine Blood Negative (Negative) 11/25/20 18:15 Urine Nitrite Negative (Negative) 11/25/20 18:15 Urine Bilirubin Negative (Negative) 11/25/20 18:15 Urine Urobilinogen Negative (Negative) 11/25/20 18:15 Ur Leukocyte Esterase Negative (Negative) 11/25/20 18:15 Urine Osmolality 534 mOsm/kg (500-800) 11/25/20 18:15 Ur Random Sodium 45 mmol/L 11/25/20 18:15 Impressions Chest X-Ray 11/25/20 17:13 XR chest 1V portable HISTORY: 35 years-old Female weakness acute weakness COMPARISON: None TECHNIQUE: Portable upright AP view of the chest FINDINGS: Cardiac silhouette is upper limits of normal in size. Right IJ Pewjmj-o-Bcjc catheter distal tip projects over the right atrium. Mild bilateral hilar prominence. Extensive bilateral reticulonodular opacities. Right greater than left bibasilar consolidation. Small pleural effusions. No pneumothorax. Bones appear grossly intact. IMPRESSION: 1. Bilateral reticular nodular opacities with right greater than left bibasilar consolidation. Findings should be correlated with the ordered CTA chest study of same day. 2. Suggested small pleural effusions. ACT 112: Negative or not required by law. The above report was generated using voice recognition software. It may contain grammatical, syntax or spelling errors. Electronically signed by: Dung Marcos M.D. 11/25/2020 6:36 PM Abdomen/Pelvis CT 11/25/20 17:18 CT angio chest PE protocol, CT abd pelvis IV con only CT DOSE: 862.18 mGy.cm HISTORY: 35 years-old Female with PE. Acute shortness of breath with chest and abdominal pain. History of metastatic colon cancer with prior colonic resection TECHNIQUE: Multiple CTA images of the chest were obtained after the intravenous administration of 120 ml Optiray. Coronal and sagittal MIPS were obtained from the axial data set and were submitted for review. CT abdomen and pelvis with IV contrast only was also obtained. All measurements were obtained according to NASCET criteria. A dose lowering technique was utilized adhering to the principles of ALARA. COMPARISON: None. FINDINGS: CTA: Narrowing of the right subclavian vein with opacified collateral vessels of the right chest wall. Right subclavian Lunngs-g-Arba catheter distal tip terminates in the SVC. The heart is normal in size. Small pericardial effusion. No thoracic aortic aneurysm or dissection. Patency of the imaged great vessels. The pulmonary arterial tree is opacified to level the subsegmental branches and demonstrates no filling defects to suggest thromboembolic disease. CT CHEST: Heterogeneous thyroid. Pathologically enlarged mediastinal and hilar lymph nodes include AP window lymph nodes measuring up to 11 mm. Small bilateral pleural effusions. Pleural and subpleural nodules are noted bilaterally including a 9 mm subpleural nodule of the left mammary chain distribution on image 88. Innumerable bilateral miliary and scattered solid pulmonary nodules are noted with nodules lung bases measuring up to 1.2 cm on the right on image 58. Dependent bibasilar consolidation with heterogeneous enhancement. Bilateral bronchial wall thickening. The central airways are patent. Unremarkable soft tissues. No acute fracture or definite suspicious lytic or blastic osseous lesion identified. CT ABDOMEN/PELVIS: There is no pneumatosis or pneumoperitoneum. The spleen measures the upper limits of normal in size at 12.5 cm. There are several ill-defined low-density lesions of the spleen measuring up to 1.6 cm on the posterior inferior margin. Unremarkable adrenal glands. There is increased enhancement of the gallbladder. No cholelithiasis. Extensive hepatic metastatic disease with innumerable lesions measuring over 5 cm within the right left hepatic lobes. There is associated pseudocirrhosis of the liver. The portal vein appears patent. Prominent lymph nodes are present within the sg hepatis. Pathologic retroperitoneal lymph nodes include a 2.3 x 1.8 cm pericaval lymph node on image 213 series 6. Omental carcinomatosis includes a 1.2 cm nodule of the abdominal left upper quadrant on image 244. Large volume of abdominopelvic ascites. No hydronephrosis. Unremarkable urinary bladder. Uterus is not diagnostically visualized and may be surgically absent. No bowel obstruction. There is moderate circumferential wall thickening involving several loops of small bowel within the abdomen and pelvis with numerous serosal implants. Tethering of small bowel loops in the central mesentery on image 340 series 6. Descending left lower quadrant colostomy. Mild generalized body wall edema. There is a heterogeneous 5.7 x 4.8 cm soft tissue lesion present involving the left abductor musculature and left obturator internus on image 454. Moderate discogenic degeneration at L5-S1. No definite evidence of skeletal metastatic disease. IMPRESSION: 1. No pulmonary emboli. 2. Extensive metastatic disease within the chest, abdomen and pelvis as above includes lymphatic, pulmonary, pleural and hepatic metastatic disease with omental carcinomatosis and possible splenic metastasis. 3. Small pleural effusions with bibasilar consolidation suggestive of atelectasis versus pneumonia. 4. Large volume of presumably metastatic abdominopelvic ascites. 5. Multifocal wall thickening of the small bowel suggestive of a nonspecific enteritis. Numerous serosal metastatic implants are also noted. 6. Metastatic soft tissue mass of the left abductor musculature. 7. Additional findings as above. ACT 112: Negative or not required by law. The above report was generated using voice recognition software. It may contain grammatical, syntax or spelling errors. Electronically signed by: Dung Marcos M.D. 11/25/2020 8:53 PM Chest CTA 11/25/20 17:18 CT angio chest PE protocol, CT abd pelvis IV con only CT DOSE: 862.18 mGy.cm HISTORY: 35 years-old Female with PE. Acute shortness of breath with chest and abdominal pain. History of metastatic colon cancer with prior colonic resection TECHNIQUE: Multiple CTA images of the chest were obtained after the intravenous administration of 120 ml Optiray. Coronal and sagittal MIPS were obtained from the axial data set and were submitted for review. CT abdomen and pelvis with IV contrast only was also obtained. All measurements were obtained according to NASCET criteria. A dose lowering technique was utilized adhering to the principles of ALARA. COMPARISON: None. FINDINGS: CTA: Narrowing of the right subclavian vein with opacified collateral vessels of the right chest wall. Right subclavian Fffubr-w-Gnfk catheter distal tip terminates in the SVC. The heart is normal in size. Small pericardial effusion. No thoracic aortic aneurysm or dissection. Patency of the imaged great vessels. The pulmonary arterial tree is opacified to level the subsegmental branches and demonstrates no filling defects to suggest thromboembolic disease. CT CHEST: Heterogeneous thyroid. Pathologically enlarged mediastinal and hilar lymph nodes include AP window lymph nodes measuring up to 11 mm. Small bilateral pleural effusions. Pleural and subpleural nodules are noted bilaterally including a 9 mm subpleural nodule of the left mammary chain distribution on image 88. Innumerable bilateral miliary and scattered solid pulmonary nodules are noted with nodules lung bases measuring up to 1.2 cm on the right on image 58. Dependent bibasilar consolidation with heterogeneous enhancement. Bilateral bronchial wall thickening. The central airways are patent. Unremarkable soft tissues. No acute fracture or definite suspicious lytic or blastic osseous lesion identified. CT ABDOMEN/PELVIS: There is no pneumatosis or pneumoperitoneum. The spleen measures the upper limits of normal in size at 12.5 cm. There are several ill-defined low-density lesions of the spleen measuring up to 1.6 cm on the posterior inferior margin. Unremarkable adrenal glands. There is increased enhancement of the gallbladder. No cholelithiasis. Extensive hepatic metastatic disease with innumerable lesions measuring over 5 cm within the right left hepatic lobes. There is associated pseudocirrhosis of the liver. The portal vein appears patent. Prominent lymph nodes are present within the sg hepatis. Pathologic retroperitoneal lymph nodes include a 2.3 x 1.8 cm pericaval lymph node on image 213 series 6. Omental carcinomatosis includes a 1.2 cm nodule of the abdominal left upper quadrant on image 244. Large volume of abdominopelvic ascites. No hydronephrosis. Unremarkable urinary bladder. Uterus is not diagnostically visualized and may be surgically absent. No bowel obstruction. There is moderate circumferential wall thickening involving several loops of small bowel within the abdomen and pelvis with numerous serosal implants. Tethering of small bowel loops in the central mesentery on image 340 series 6. Descending left lower quadrant colostomy. Mild generalized body wall edema. There is a heterogeneous 5.7 x 4.8 cm soft tissue lesion present involving the left abductor musculature and left obturator internus on image 454. Moderate discogenic degeneration at L5-S1. No definite evidence of skeletal metastatic disease. IMPRESSION: 1. No pulmonary emboli. 2. Extensive metastatic disease within the chest, abdomen and pelvis as above includes lymphatic, pulmonary, pleural and hepatic metastatic disease with omental carcinomatosis and possible splenic metastasis. 3. Small pleural effusions with bibasilar consolidation suggestive of atelectasis versus pneumonia. 4. Large volume of presumably metastatic abdominopelvic ascites. 5. Multifocal wall thickening of the small bowel suggestive of a nonspecific enteritis. Numerous serosal metastatic implants are also noted. 6. Metastatic soft tissue mass of the left abductor musculature. 7. Additional findings as above. ACT 112: Negative or not required by law. The above report was generated using voice recognition software. It may contain grammatical, syntax or spelling errors. Electronically signed by: Dung Marcos M.D. 11/25/2020 8:[address] 11/25/20 17:18 CT head/brain wo con CLINICAL HISTORY: 35 years-old Female with weankess. Acute weakness TECHNIQUE: Multiple axial CT images of the head were obtained without contrast. A dose lowering technique was utilized adhering to the principles of ALARA. CT DOSE: 537.48 mGy.cm COMPARISON: Brain MRI 02/28/2014 FINDINGS: Mildly motion degraded exam. No acute intracranial hemorrhage, midline shift, intracranial mass, hydrocephalus, territorial ischemia or abnormal extra-axial collection. The calvarium is intact. Large left mastoid effusion. The right mastoid air ce lls are clear. The paranasal sinuses are clear. Unremarkable soft tissues and orbits. IMPRESSION: 1. No acute intracranial abnormality. 2. Left mastoid effusion. ACT 112: Negative or not required by law. The above report was generated using voice recognition software. It may contain grammatical, syntax or spelling errors. Electronically signed by: Dung Marcos M.D. 11/25/2020 7:58 PM ECG Additional Comments: EKG with ST at 122, normal axis, HI shortened at 88ms, TRG=162, EYy=050 Code Status & VTE Plan VTE Prophylaxis Plan VTE Prophylaxis will be ordered: Yes PG Care Time/CCT Total # of Minutes Spent Total Time Spent with Patient: Total time spent is greater than 50% in coordination of care (as documented) at patient's floor/unit and/or counseling patient: Coding Level of Care Code 29755 Initial Inpt Care Lvl 2 Diagnoses Weakness R53.1 Colon cancer metastasized to multiple sites C18.9 Hypokalemia E87.6 Acute hyponatremia E87.1
[2020-11-26] MEDS: POTASSIUM CHLORIDE / WTR 10 MEQ/100 ML PLCT IV SCH ×5 (01:42→07:10)
[2020-11-26] MEDS ORDERED: POTASSIUM CHLORIDE 20 MEQ in SODIUM CHLORIDE 0.9% 1000ML 1,000 ML IV SCH (02:22)
[2020-11-26] MEDS ORDERED: DOCUSATE SODIUM 100 MG CAP PO PRN (02:22)
[2020-11-26] MEDS ORDERED: POLYETHYLENE (MIRALAX) 17 GM PACK PO PRN (02:22)
[2020-11-26] MEDS ORDERED: POTASSIUM CHLORIDE / WTR 10 MEQ/100 ML PLCT IV SCH (03:00)
[2020-11-26] MEDS ORDERED: NSS + 20MEQ KCL 20 MEQ/1,000 ML BAG IV SCH (03:00)
[2020-11-26 03:09] LABS: Phosphorus 0.6 mg/dl (2.5-4.9)
[2020-11-26] MEDS ORDERED: POTASSIUM PHOS 3 MMOL/1 ML INFUSION IV STA (03:16)
[2020-11-26] MEDS ORDERED: cefTRIAXone SODIUM 1,000 MG in DEXTROSE 5% 50 ML IV SCH (04:00)
[2020-11-26] MEDS: MoRPHine SULFATE 2 MG/ML CARP IV PRN ×4 (04:04→17:44)
[2020-11-26] MEDS ORDERED: Nursing to Pharmacy Communication SCH (05:00)
[2020-11-26] MEDS ORDERED: POTASSIUM PHOSPHATE 21 MMOL in SODIUM CHLORIDE 0.9% 500 ML IV ONE (06:30)
[2020-11-26 08:27] LABS: Blood Urea Nitrogen 6 mg/dl (7-18); Calcium 7.6 mg/dl (8.5-10.1); Carbon Dioxide 36 mmol/L (21-32); Chloride 79 mmol/L (98-107); Creatinine Clr Calc Pharmacy 309.1 ml/min; Est GFR (African American) > 150.0 ml/min; Est GFR (Non-African American) > 150.0 ml/min; Glucose 113 mg/dl (70-99); Potassium 2.3 mmol/L (3.5-5.1); Sodium 127 mmol/L (136-145)
[2020-11-26] MEDS ORDERED: ENOXAPARIN INJ 40 MG/0.4 ML SYR SQ SCH (09:00)
[2020-11-26] MEDS: POTASSIUM ACETATE/NSS 20 MEQ/110 ML BAG IV SCH ×2 (10:58→14:20)
[2020-11-26] MEDS ORDERED: XYLOCAINE 1%/SOD BICARB 20 ML VIAL INFIL ONE (12:27)
--- NOTE | 2020-11-26 15:15 | Ultrasound Report ---
PARACENTESIS UNDER ULTRASOUND GUIDANCE CLINICAL HISTORY: therapeutic tap COMPARISON STUDY: No previous studies for comparison. Correlation is made with CT of the abdomen and pelvis performed on November 25, 2020. FINDINGS: The risks, benefits, and alternatives to the procedure were discussed with the patient. Deanna whitman informed consent was obtained. Following real-time ultrasound localization, the skin was prepped and draped. Following local anesthesia with Xylocaine, the sheath paracentesis needle was inserted a nd approximately 4.3 liters of yellow fluid was removed by vacuum suction. The patient tolerated the procedure well and left the department in satisfactory condition. IMPRESSION: Successful ultrasound-guided paracentesis with removal of approximately 4.3 liters of asc itic fluid. ACT 112: Negative or not required by law. The above report was generated using voice recognition software. It may contain grammatical, syntax o r spelling errors. Electronically signed by: Fadumo Duff DO 11/26/2020 3:14 PM
[2020-11-26 15:57] LABS: BUN Creatinine Ratio 25.4 (10-20); Blood Urea Nitrogen 7 mg/dl (7-18); Calcium 7.3 mg/dl (8.5-10.1); Carbon Dioxide 36 mmol/L (21-32); Chloride 82 mmol/L (98-107); Creatinine Clr Calc Pharmacy 274.7 ml/min; Est GFR (African American) > 150.0 ml/min; Est GFR (Non-African American) > 150.0 ml/min; Glucose 91 mg/dl (70-99); Potassium 2.9 mmol/L (3.5-5.1); Sodium 129 mmol/L (136-145)
[2020-11-26] MEDS ORDERED: POTASSIUM CHLORIDE 40 MEQ in SODIUM CHLORIDE 0.9% 1000ML 1,000 ML IV SCH (16:45)
--- NOTE | 2020-11-27 05:41 | Electrocardiogram Report ---
Test Reason : Blood Pressure : / mmHG Vent. Rate : 122 BPM Atrial Rate : 122 BPM P-R Int : 088 ms QRS Dur : 104 ms QT Int : 392 ms P-R-T Axes : 001 000 087 degrees QTc Int : 558 ms Sinus tachycardia with short WI Voltage criteria for left ventricular hypertrophy Nonspecific ST and T wave abnormality Prolonged QT Abnormal ECG No previous ECGs available Confirmed by Abel Da Silva ([id number]) on 11/27/2020 5:41:41 AM Referred By: REFERRED SELF Confirmed By:Abel Da Silva
--- NOTE | 2020-11-27 07:41 | Discharge Summary ---
Date of Service November 26, 2020 Admission HPI Per Admitting Provider Yessenia Pinto is a 35-year-old [facility] female with history of diffusely metastatic colon cancer diagnosed October 25, 2019 presenting with 3 to 4 weeks of progressive weakness, abdominal pain and bloating. Family is at bedside - and sister. Patient initially presented to [facility] in October 2019 with chief complaint of rectal bleeding. There she was diagnosed with colon cancer. She had abdominal surgery, bowel resection with colostomy placement performed in [place] in October-November 2019 and returned to [place] in July-August of 2020 for chemotherapy treatment. She is currently receiving chemotherapy medications from [place] - regimen is typically 2 weeks of medication followed by an off week. Uncertain of name of agent being used. She has had 3-4 weeks of progressive abdominal bloating and pain. Poor appetite with very little oral intake over the last 3 weeks. Occasional vomiting after oral intake - non-bloody/non-bilious emesis. Output from the ostomy has been normal to slightly reduced. She also has had some chest discomfort and SOB as well as severe weakness, inability to get up. Tachycardic in the ER with HR 103 - 126, otherwise stable. ER Course: Zosyn 4.5gm, Fentanyl 50mcg x 2 doses, NSS x 2L bolus, Zofran x 4mg, KCl x 20 mEq Principal Diagnosis Widely metastatic colon cancer causing dehydration and electrolyte abnormalities Discharge Exam Constitutional well developed, + ill appearing, + thin, + cachectic, + frail appearing and + lethargic; no acute distress and + uncomfortable ENMT Mouth: + dry oral mucous membranes Neck trachea midline, no thyromegaly Respiratory normal respiratory effort, lungs clear to auscultation Cardiovascular Rate/Rhythm: regular rhythm and + tachycardic Heart Sounds: normal S1 and normal S2; no murmur Vessels: no JVD Extremities: normal capillary refill; no edema Gastrointestinal (Abdomen) Inspection/Auscultation: + abdomen distended Percussion/Palpation: + abdomen tender, + ascites, + dullness to percussion, + fluid wave and + abdomen firm Musculoskeletal Head/Neck/Chest: normocephalic, head atraumatic and neck supple Extremities: + abnormal strength and + muscle atrophy; no cyanosis, no clubbing and no petechiae Skin no rashes, warm and dry Neurologic CN's II-XI intact bilaterally, moves all extremities and awake; no focal motor deficits Psychiatric Orientation: alert and oriented x 3 Affect: + flat affect Discharge Data Allergies Allergy/AdvReac Type Severity Reaction Status Date / Time Sulfa (Sulfonamide Allergy Unknown Rash Unverified 11/25/20 18:51 Antibiotics) Consultations 11/25/20 23:52 ED Decision to Admit Stat 11/26/20 02:22 Consult Palliative Care Routine Ordered Studies 11/25/20 17:18 CT abd pelvis IV con only Stat CT angio chest PE protocol Stat CT head/brain wo con Stat 11/26/20 10:14 US paracentesis abd w/image Routine Hospital Course (1) Colon cancer metastasized to multiple sites: Patient diagnosed at [facility] October 2019. She has undergone surgical intervention, bowel resection with colostomy placement as well as chemo therapy in [place] her has been administering all her chemotherapy here via [facility], he still has further chemotherapy, could not tell me the names of the medications CT chest and abdomen/pelvis show diffuse disease with mets in lungs, liver, omentum she has malignant ascites that is tense and causing discomfort she cannot eat or drink, exhibits profound weakness and muscle atrophy I reviewed the case with Dr. Andrade, the patient needs hospice spoke with family, they already have hospice arranged at home, working on getting oxygen today for comfort they want to go home as she is "just laying here in the hospital, she could do this at home and at least family could be with her" patient agrees that she just wants to be at home on comfort care patient and family in agreement that further chemotherapy will only cause more harm without providing any benefit radiology was able to perform a therapeutic paracentesis for 4.3 liters, they do not place PleurX drains patient actually had some increased pain after fluid drained, discussed with patient and family, would not recommend further taps, would use Morphine for pain control provided with Morphine concentrate, Ativan, Zofran prescriptions asked a lot of questions about IV fluids, I told him that I would defer to them on what fluids to use (he has access to NSS) however, I told him that at this point I feel fluids are keeping her alive longer and honestly they are just prolonging suffering he understands discharged to home on hospice via litter van in the evening on 11/26/20 (2) Weakness: several weeks of progressive weakness, abdominal pain and bloating as well as decreased oral intake. Reason for weakness most likely multifactorial to include diffusely metastatic disease, poor oral intake with dehydration as well as electrolyte abnormalities, hyponatremia and severe hypokalemia. patient is bedbound family will provide all care at home on hospice cannot reverse weakness at this point (3) Hypokalemia: K=1.6 possibly secondary to poor intake + GI losses. K up to 2.9 after aggressive IV replacement via port gave her a bag of NSS + 40mEq of KCl to take home since the bag was already spiked K will drop rapidly once IV fluids stopped as her intake is extremely poor (4) Acute hyponatremia: Ka=926 on admission, up slightly with NSS due to poor solute intake and ascites (5) Abdominal ascites: malignant therapeutic tap for 4.3 liters on 11/26, actually had increased pain in other parts of the abdomen after the tap explained to family that she has a lot of disease in the omentum, removing the fluid could have made those areas more tender will likely not pursue any further taps, use Morphine for comfort at home (6) Hypophosphatemia: (7) Hypomagnesemia: Total Time Total Time Spent Total Time Spent (In Minutes): 45 minutes Total Time Includes: Examination of the Patient, Discharge Planning, Medication Reconciliation, Communication With Other Providers (radiologist about paracentesis) and Other (numerous discussions with patient's and sister at the bedside) Discharge Plan Discharge Items Patient Disposition: Hospice - Home Reason For Visit: WEAKNESS, HYPOKALEMIA Discharge Diagnosis: Metastatic colon cancer Condition on Discharge: Fair Goals: keep comfortable at home Activity: Per Instructions section Activity Comment: recommend bedrest Non-emergency contact: Primary Care Provider Call non-emergency contact if: you have any medication questions, your symptoms worsen and your pain is not controlled Follow-up/Referrals: Amarilys iY CRNP [Primary Care Provider] - (Please call your PCP to schedule a follow-up discharge appointment for 7-10 days.) Diet: Regular Addtl Attending Provider Instructions: Medications: focus on comfort - MORPHINE: take 0.25mL (5mg) every 3 hours as needed for pain or shortness of breath, if still in pain can increase the dose, discuss with hospice nurse - ATIVAN: take 0.5mg every 8 hours as needed for anxiety - ZOFRAN: take as needed for nausea/vomiting, pill should dissolve under tongue for ease of use Fluids: I would recommend giving normal saline solution (0.9%) at 80mL/hr for total of 1000 to 1500mL a day if possible, add 20 to 40 mEq of potassium to the fluid however, there comes a point where fluids are actually prolonging suffering because Yessenia will not be eating or drinking much and naturally she would become dehydrated and kidneys would not function well, I will leave it up to your discretion about when to give fluids and certainly you can speak with home hospice nurse for their recommendations again, I reviewed the CT scans personally and I discussed them with Dr. Andrade, [facility] oncologist, our recommendation is no further chemotherapy as it will make Yessenia's quality of life worse we recommend comfort care only and to remain on hospice at home we performed a therapeutic paracentesis of 4.3 liters, but as we discussed it gave Yessenia some pain in other areas, I would not recommend doing another paracentesis, I would use the morphine for discomfort Pending Studies at Discharge: No Stand-Alone Forms: My [facility], Smoking Cessation Medications and DC Order Prescriptions: New morphine concentrate 100 mg/5 mL (20 mg/mL) solution 5 mg PO Q3H PRN (Reason: pain or dyspnea) Qty: 120 RF: 0 lorazepam [Ativan] 0.5 mg tablet 0.5 mg PO Q8H PRN (Reason: anxiety) Qty: 30 RF: 0 ondansetron 4 mg tablet,disintegrating 4 mg PO Q8H PRN (Reason: nausea and vomiting) 30 Days Qty: 30 RF: 1 Continued pantoprazole 20 mg Tablet,Delayed Release (Dr/Ec) 20 mg PO DAILY RF: 0 Iv Vitamins 0 g IV DAILY RF: 0 Discharge Orders: Discharge Order (Routine); Ordered 11/26/20 Ordered By: Martín Gonzalez Admission Data Admit Date/Time: 11/26/20 00:46 Attending Provider: Martín Gonzalez Admit Provider: Shaylee Barger Primary Care Provider: Amarilys Yi Other Providers: Shaylee Barger ; Iwona Ruth. Other Interventions: Discharge Summary Assessment (RN) Last Done: 11/26/20 16:45 Coding Level of Care Code D/C Day Management >30 mins Diagnoses Colon cancer metastasized to multiple sites C18.9 Weakness R53.1 Hypokalemia E87.6 Acute hyponatremia E87.1 Abdominal ascites R18.0 Ascites type: malignant Hypophosphatemia E83.39 Hypomagnesemia E83.42
--- NOTE | 2020-12-08 11:35 | Coding Query ---
CODING QUERY To promote full compliance with coding requirements relating to patient care, provider participation is requested in all cases of supervisor wet end uncertainty. Please assist us with the question(s) below: Coding Question(s): 1. The H&P documents, "-Ceftriaxone 1gm IV daily for possible SBP" and there are no Progress Notes and no mention of possible SBP on the Discharge Summary. Please specify below, in your clinical opinion, regarding possible SBP. ( ) Possible SBP was treated with IV Ceftriaxone. Please specify further below to determine the meaning of SBP. ( ) Spontaneous Bacterial Peritonitis ( ) Spontaneous Biliary Perforation ( ) Small-Bowel Phytobezoar ( ) Other: Please Specify ( x ) Possible SBP was Ruled-Out (spontaneous bacterial peritonitis) ( ) Other: Please Specify 2. Ascites is documented. The Discharge Summary documents, "she has malignant ascites that is tense and causing discomfort" and, "radiology was able to perform a therapeutic paracentesis for 4.3 liters, they do not place PleurX drains patient actually had some increased pain after fluid drained, discussed with patient and family, would not recommend further taps, would use Morphine for pain control". Please specify below, in your clinical opinion, to specify the malignant source site that is Most Likely causing the malignant ascites as the malignancy must be coded first. ( ) metastatic to the omentum ( ) metastatic to the liver ( ) metastatic to the lung ( ) primary colon cancer ( ) primary site unknown ( ) metastatic to unknown site ( ) Other site: Please Specify ( ) Unknown most likely site Physician's Response(s): Thank you Tati Mendiola Principal Diagnosis: "that condition established after study, to be chiefly responsible for occasioning the admission of the patient to the hospital for care." Co-Existing Principal Diagnosis: "when two or more diagnoses equally meet the criteria for principal diagnosis as determined by the circumstances of admission, diagnostic work up, and/or therapy provided, and the Alphabetic Index, Tabular List, or another coding guideline does not provide sequencing direction, any one of the diagnoses may be sequenced first." "When the physician has documented what appears to be a current diagnosis in the body of the record, but has not included the diagnosis in the final diagnostic statement, the physician should be asked whether the diagnosis should be added." ([facility] 2 QTR90. p3-4) SAMUEL
--- NOTE | 2020-12-10 07:29 | Coding Query ---
CODING QUERY To promote full compliance with coding requirements relating to patient care, provider participation is requested in all cases of prop drawer uncertainty. Please assist us with the question(s) below: Coding Question(s): The following query had been included in a previous query and had not been answered: Ascites is documented. The Discharge Summary documents, "she has malignant ascites that is tense and causing discomfort" and, "radiology was able to perform a therapeutic paracentesis for 4.3 liters, they do not place PleurX drains patient actually had some increased pain after fluid drained, discussed with patient and family, would not recommend further taps, would use Morphine for pain control". Please specify below, in your clinical opinion, to specify the malignant source site that is Most Likely causing the malignant ascites as that malignancy must be coded first. (x ) metastatic to the omentum ( ) metastatic to the liver ( ) metastatic to the lung ( ) primary colon cancer ( ) primary site unknown ( ) metastatic to unknown site ( ) Other site: Please Specify ( ) Unknown most likely site Physician's Response(s): Thank you Tati Mendiola Principal Diagnosis: "that condition established after study, to be chiefly responsible for occasioning the admission of the patient to the hospital for care." Co-Existing Principal Diagnosis: "when two or more diagnoses equally meet the criteria for principal diagnosis as determined by the circumstances of admission, diagnostic work up, and/or therapy provided, and the Alphabetic Index, Tabular List, or another coding guideline does not provide sequencing direction, any one of the diagnoses may be sequenced first." "When the physician has documented what appears to be a current diagnosis in the body of the record, but has not included the diagnosis in the final diagnostic statement, the physician should be asked whether the diagnosis should be added." ([facility]oding [facility] 2 QTR90. p3-4) SAMUEL
== END 2020-11-26 17:58 | disposition hospice, home (50) | DRG 375 ==
LOC: ED 16:56 → 2N 11-26 00:46 → SUATTDRO 11-26 00:46 → 2N 11-26 02:23